=== PATIENT | male | born 1980 | race Caucasian/White ===

== ENCOUNTER 2020-04-27 16:19 | Emergency (ER) | payer MEDICARE, MEDICAID ==
[~2020-04-27] VITALS: Ht 172.7 cm; Wt 81.8 kg
[2020-04-27 16:32] VITALS: BP 155/97; Ht 172.7 cm; Wt 81.8 kg
[2020-04-27] MEDS ORDERED: GABAPENTIN100 MG PO (16:35)
[2020-04-27] MEDS ORDERED: DOXYCYCLINE HY100 M2 PO (16:36)
[2020-04-27] MEDS ORDERED: CLOZARIL25 MG PO (17:12)
[2020-04-27 17:23] LABS: BASOPHILS 0.4 % (0-2); HEMOGLOBIN 15.7 g/dL (13.5-17.5); IMMATURE GRANULOCYTES 0.5 % (0-5); LYMPHOCYTES 27.8 % (15-50); MCH 28.1 pg (26.0-34.0); MCHC 34.1 g/dL (31.0-37.0); MCV 82.4 fL (80.0-100.0); MEAN PLATELET VOLUME 9.5 fL (7.4-10.4); MONOCYTES 6.2 % (2-11); NEUTROPHILS 63.1 % (40-80); PLATELET COUNT 266 10x3/uL (130-400); RBC 5.58 10x6/uL (4.20-6.10); RDW 15.2 % (11.5-14.5); WBC 11.9 10x3/uL (4.8-10.8)
[2020-04-27 17:25] LABS: CALC OSMOLALITY 268 mosm/kg (275-300); CALCIUM 9.3 mg/dL (8.5-10.1); CARBON DIOXIDE 25.8 mmol/L (21.0-32.0); CHLORIDE - SERUM 102 mmol/L (98-107); CREATININE - SERUM 0.9 mg/dL (0.6-1.3); GLUCOSE 95 mg/dL (74-106); SODIUM 135 mmol/L (136-145); UREA NITROGEN 11 mg/dL (7-18); eGFR NON AFRICAN AMERICAN > 90 mL/min (90-120)
[2020-04-27 17:32] LABS: ALBUMIN 4.6 g/dL (3.4-5.0); ALKALINE PHOSPHATASE 157 U/L (30-120); ALT (SGPT) 78 U/L (10-68); BILIRUBIN - TOTAL 0.24 mg/dL (0.2-1.3); PROTEIN - SERUM 8.2 g/dL (6.4-8.2)
[2020-04-27 18:12] LABS: BILIRUBIN NEGATIVE (NEGATIVE); KETONE NEGATIVE (NEGATIVE); NITRITE NEGATIVE (NEGATIVE); UROBILINOGEN NORMAL mg/dL (< 2)
[2020-04-27 18:21] LABS: UDS - AMPHET NEGATIVE QUAL (NEGATIVE); UDS - BARB NEGATIVE QUAL (NEGATIVE); UDS - BENZO NEGATIVE QUAL (NEGATIVE); UDS - COCAINE NEGATIVE QUAL (NEGATIVE); UDS - OPIATE NEGATIVE QUAL (NEGATIVE); UDS - PCP NEGATIVE QUAL (NEGATIVE); UDS - THC NEGATIVE QUAL (NEGATIVE)
--- NOTE | 2020-04-27 18:29 | NUR ---
DR. BUSTAMANTE NOTIFIED AND REVIEWED PT'S BEHAVIOR AND ASSESSMENT RESULTS. PT IS A MODERATE RISK PER DR. BUSTAMANTE. DR. BUSTAMANTE STATED TO GIVE RESOURCES TO PT AT TIME OF DISCHARGE. NO FURTHER ORDERS AT THIS TIME. RESOURCES REVIEWED WITH PT AND HE VERBALIZIED UNDERSTANDING.
[2020-04-27] MEDS ORDERED: TORADOL10 MG PO (19:56)
[2020-04-28] MEDS ORDERED: TOPROL XL50 MG PO (21:59)
== END 2020-04-27 20:17 | disposition home or self-care (01) ==
LOC: D.ER 16:19
PROVIDERS: Family Medicine
DX: M54.5 Low back pain (principal)

== ENCOUNTER 2020-04-28 21:38 | Emergency (ER) | payer MEDICARE, MEDICAID ==
[~2020-04-28] VITALS: Ht 172.7 cm; Wt 77.3 kg
[~2020-04-28 21:38] MED LIST: CLOZARIL25 MG PO; DOXYCYCLINE HY100 M2 PO; GABAPENTIN100 MG PO; TORADOL10 MG PO
[2020-04-28 21:40] VITALS: Ht 172.7 cm; Wt 77.3 kg
[2020-04-28] MEDS ORDERED: TOPROL XL50 MG PO (21:59)
[2020-04-29 00:11] VITALS: BP 158/89
== END 2020-04-29 00:11 | disposition home or self-care (01) ==
LOC: D.ER 21:38
DX: M54.2 Cervicalgia (principal); M62.838 Other muscle spasm; I10 Essential (primary) hypertension; F20.9 Schizophrenia, unspecified

== ENCOUNTER 2020-05-10 12:56 | Emergency (ER) | payer MEDICARE, MEDICAID ==
[~2020-05-10] VITALS: Ht 172.7 cm; Wt 81.8 kg
[2020-05-10 13:04] VITALS: Ht 172.7 cm; Wt 81.8 kg
[2020-05-10 14:11] VITALS: BP 160/100
== END 2020-05-10 14:16 | disposition home or self-care (01) ==
LOC: D.ER 12:56
DX: R13.10 Dysphagia, unspecified (principal); T48.1X5A Adverse effect of skeletal muscle relaxants [neuromuscular blocking agents], initial encounter; I10 Essential (primary) hypertension; Z72.0 Tobacco use

== ENCOUNTER → 2020-05-10 | Emergency (ER) | payer MEDICARE, MEDICAID ==
[~2020-05-10] VITALS: Ht 172.7 cm; Wt 81.8 kg
[~2020-05-10] MED LIST changes: +TOPROL XL50 MG PO
[2020-05-10 18:00] VITALS: BP 135/57; Ht 172.7 cm; Wt 81.8 kg
== END ==
LOC: D.ER 17:48
DX: R60.9 Edema, unspecified (principal)